=== PATIENT | male | born 1940 | race Caucasian/White ===

== ENCOUNTER → 2016-06-03 | Outpatient (CLI) | payer OTHER | LOC: BMCIMAGING 15:48 | PROVIDERS: ATTEND Internal Medicine | DX: R60.0 Localized edema (principal) ==

== ENCOUNTER → 2018-03-02 | Outpatient (CLI) | payer OTHER ==
[~2018-03-02] MED LIST: IOPAMIDOL (ISOVUE 370) 100 ML BTL IV ONE
== END ==
LOC: FIMAGING 11:47
PROVIDERS: ATTEND Internal Medicine
DX: R97.21 Rising PSA following treatment for malignant neoplasm of prostate (principal); Z85.46 Personal history of malignant neoplasm of prostate
CPT/HCPCS: 74177; Q9967; 82565-PO

== ENCOUNTER → 2018-03-23 | Outpatient (CLI) | payer OTHER | LOC: FIMAGING 09:57 | PROVIDERS: ATTEND Internal Medicine | DX: R97.21 Rising PSA following treatment for malignant neoplasm of prostate (principal); M19.011 Primary osteoarthritis, right shoulder; M19.012 Primary osteoarthritis, left shoulder; M19.031 Primary osteoarthritis, right wrist; M19.032 Primary osteoarthritis, left wrist; M17.0 Bilateral primary osteoarthritis of knee; M19.071 Primary osteoarthritis, right ankle and foot; M19.072 Primary osteoarthritis, left ankle and foot | CPT/HCPCS: 78306; A9503 ==